=== PATIENT | female | born 1985 | race Caucasian/White ===

== ENCOUNTER 2017-09-09 10:07 | Emergency (ER) | payer BC, MEDICAID ==
[2017-09-09] MEDS: NS 0.9% 1000 ML* 2,000 ML IV ONE (13:00)
[2017-09-09 13:08] LABS: ABS Basophils 0 10^3/ul (0-0.2); ABS Eosinophils 0 10^3/ul (0-0.6); ABS Lymphocytes 0.5 10^3/ul (1.0-4.8); ABS Monocytes 0.6 10^3/ul (0-0.8); ABS Neutrophils 7.2 10^3/ul (1.5-7.7); ABS Nucleated RBC 0 10^3/ul; Eosinophil % 0.1 % (0-6); Hematocrit 33 % (35-47); Hemoglobin 11.1 g/dl (12.0-16.0); Mean Corpuscular HGB Conc 34 g/dl (31-36); Mean Corpuscular Hemoglobin 31 pg (27-31); Mean Corpuscular Volume 91 fL (80-97); Mean Platelet Volume 9 um3 (7.4-10.4); Nucleated Red Blood Cells % 0.1; Platelet Count 143 10^3/ul (150-450); Red Cell Distribution Width 14 % (10.5-15); White Blood Count 8.4 10^3/ul (3.5-10.8)
[2017-09-09] MEDS ORDERED: Oseltamivir CAP* 75 MG CAP PO ONE (13:30)
[2017-09-09 14:11] LABS: Urine Appearance Clear; Urine Blood Negative (Negative); Urine Color Straw; Urine Ketones Negative (Negative); Urine Protein Negative (Negative); Urine Specific Gravity 1.003 (1.010-1.030); Urine Urobilinogen Negative (Negative)
[2017-09-09 14:43] VITALS: BP 124/67
--- NOTE | 2017-09-10 10:55 | ED ---
Mamie Servin Edward, scribed for Obi Dove MD on 09/09/17 at 1226 . HPI Febrile Illness - HPI Summary HPI Summary: 32 y/o female presents to the ED c/o fever starting yesterday morning. The fever has not gone down since yesterday. Pt is 38.5 weeks . Associated sx: productive cough. Denies burning with urination, SOB. Sx not alleviated by anything. - History of Current Complaint Chief Complaint: EDFever Time Seen by Provider: 09/09/17 12:18 Hx Obtained From: Patient Onset/Duration: Started Hours Ago - yesterday Timing: Constant Aggravating Factors: Nothing Associated Signs and Symptoms: Cough - Allergy/Home Medications Allergies/Adverse Reactions: Allergies Allergy/AdvReac Type Severity Reaction Status Date / Time No Known Allergies Allergy Verified 09/09/17 10:10 PMH/Surg Hx/FS Hx/Imm Hx Previously Healthy: No Cardiovascular History: Denies: Hx Myocardial Infarction Opthamlomology History: Denies: Hx Legally Blind Infectious Disease History: No Infectious Disease History: Denies: Traveled Outside the [place] in Last 30 Days - Family History Known Family History: Positive: Unknown - Social History Lives: With Family Alcohol Use: None Hx Substance Use: No Substance Use Type: Reports: None Hx Tobacco Use: Yes Smoking Status (MU): Former Smoker Review of Systems Positive: Fever Eyes: Negative ENT: Negative Cardiovascular: Negative Positive: Cough Gastrointestinal: Negative Genitourinary: Negative Musculoskeletal: Negative Skin: Negative Neurological: Negative Psychological: Normal All Other Systems Reviewed And Are Negative: Yes Physical Exam - Summary Physical Exam Summary: VITAL SIGNS: Reviewed. GENERAL: Patient is a well-developed and nourished female who is lying comfortable in the stretcher. Patient is not in any acute respiratory distress. HEAD AND FACE: No signs of trauma. No ecchymosis, hematomas or skull depressions. No sinus tenderness. EYES: PERRLA, EOMI x 2, No injected conjunctiva, no nystagmus. EARS: Hearing grossly intact. Ear canals and tympanic membranes are within normal limits. MOUTH: Oropharynx within normal limits. NECK: Supple, trachea is midline, no adenopathy, no JVD, no carotid bruit, no c- spine tenderness, neck with full ROM. CHEST: Symmetric, no tenderness at palpation LUNGS: Clear to auscultation bilaterally. No wheezing or crackles. CVS: Regular rate and rhythm, S1 and S2 present, no murmurs or gallops appreciated. ABDOMEN: Soft, non-tender. No signs of distention. No rebound no guarding, and no masses palpated. Bowel sounds are normal. EXTREMITIES: FROM in all major joints, no edema, no cyanosis or clubbing. NEURO: Alert and oriented x 3. No acute neurological deficits. Speech is normal and follows commands. SKIN: Dry and warm Triage Information Reviewed: Yes Vital Signs On Initial Exam: Initial Vitals Temp Pulse Resp BP Pulse Ox 98.4 F 115 20 125/73 99 09/09/17 10:10 09/09/17 10:10 09/09/17 10:10 09/09/17 10:10 09/09/17 10:10 Vital Signs Reviewed: Yes Diagnostics - Vital Signs Vital Signs Temp Pulse Resp BP Pulse Ox 09/09/17 10:10 98.4 F 115 20 125/73 99 - Laboratory Lab Results: Lab Results 09/09/17 09/09/17 09/09/17 Range/Units 12:16 12:42 13:10 WBC 8.4 (3.5-10.8) 10^3/ul RBC 3.60 L (4.0-5.4) 10^6/ul Hgb 11.1 L (12.0-16.0) g/dl Hct 33 L (35-47) % MCV 91 (80-97) fL MCH 31 (27-31) pg MCHC 34 (31-36) g/dl RDW 14 (10.5-15) % Plt Count 143 L (150-450) 10^3/ul MPV 9 (7.4-10.4) um3 Neut % (Auto) 85.9 H (38-83) % Lymph % (Auto) 6.0 L (25-47) % Major % (Auto) 7.6 (1-9) % Eos % (Auto) 0.1 (0-6) % Baso % (Auto) 0.4 (0-2) % Absolute Neuts (auto) 7.2 (1.5-7.7) 10^3/ul Absolute Lymphs (auto) 0.5 L (1.0-4.8) 10^3/ul Absolute Monos (auto) 0.6 (0-0.8) 10^3/ul Absolute Eos (auto) 0 (0-0.6) 10^3/ul Absolute Basos (auto) 0 (0-0.2) 10^3/ul Absolute Nucleated RBC 0 10^3/ul Nucleated RBC % 0.1 Urine Color Urine Appearance Urine pH (5-9) Ur Specific Marshall (1.010-1.030) Urine Protein (Negative) Urine Ketones (Negative) Urine Blood (Negative) Urine Nitrate (Negative) Urine Bilirubin (Negative) Urine Urobilinogen (Negative) Ur Leukocyte Esterase (Negative) Urine Glucose (Negative) Influenza A (Rapid) Positive H (Negative) Influenza B (Rapid) Negative (Negative) Group A Strep Rapid Negative (Negative) 09/09/17 Range/Units 13:56 WBC (3.5-10.8) 10^3/ul RBC (4.0-5.4) 10^6/ul Hgb (12.0-16.0) g/dl Hct (35-47) % MCV (80-97) fL MCH (27-31) pg MCHC (31-36) g/dl RDW (10.5-15) % Plt Count (150-450) 10^3/ul MPV (7.4-10.4) um3 Neut % (Auto) (38-83) % Lymph % (Auto) (25-47) % Major % (Auto) (1-9) % Eos % (Auto) (0-6) % Baso % (Auto) (0-2) % Absolute Neuts (auto) (1.5-7.7) 10^3/ul Absolute Lymphs (auto) (1.0-4.8) 10^3/ul Absolute Monos (auto) (0-0.8) 10^3/ul Absolute Eos (auto) (0-0.6) 10^3/ul Absolute Basos (auto) (0-0.2) 10^3/ul Absolute Nucleated RBC 10^3/ul Nucleated RBC % Urine Color Straw Urine Appearance Clear Urine pH 7.0 (5-9) Ur Specific Marshall 1.003 L (1.010-1.030) Urine Protein Negative (Negative) Urine Ketones Negative (Negative) Urine Blood Negative (Negative) Urine Nitrate Negative (Negative) Urine Bilirubin Negative (Negative) Urine Urobilinogen Negative (Negative) Ur Leukocyte Esterase Negative (Negative) Urine Glucose Negative (Negative) Influenza A (Rapid) (Negative) Influenza B (Rapid) (Negative) Group A Strep Rapid (Negative) Result Diagrams: 09/09/17 12:42 Lab Statement: Any lab studies that have been ordered have been reviewed, and results considered in the medical decision making process. Course/Dx - Course Assessment/Plan: 32 y/o female presents to the ED c/o fever starting yesterday morning. The fever has not gone down since yesterday. Pt is 38.5 weeks . Associated sx: productive cough. Denies burning with urination, SOB. Sx not alleviated by anything. Spoke with Dr. Marin regarding the risks of treating women with Tamiflu - she states the benefits outweigh the risks.Test results are without significant abnormalities except slight decrease in H&H. UA (-) UTI. Influenza A positive. The pt was hydrated with 2 L of fluids and her sx significantly improved. pt reports she has no weakness and feels strong. She feels the baby moving. We did monitoring and there were positive normal heart sounds. I discussed the case with Tomas (see above). Therefore I will give a Rx Tamiflu and d/c the patient with f/u w/ pcp and ob-fruit harvester. - Febrile Illness Differential Diagnoses: Other: - URI, Influenza, pharyngitis, - Diagnoses Provider Diagnoses: Influenza - Provider Notifications Discussed Care Of Patient With: Doris Marin Time Discussed With Above Provider: 13:45 Instructed by Provider To: Other - tamiflu for women - benefits outweigh risks Discharge - Discharge Plan Condition: Stable Disposition: HOME Prescriptions: Oseltamivir CAP* [Tamiflu CAP*] 75 mg PO BID #10 cap Patient Education Materials: Influenza (ED) Referrals: Arnie Ross MD [Primary Care Provider] - 4 Days (PLEASE F/U IN 3-5 DAYS) The documentation as recorded by the Mamie engle Edward accurately reflects the service I personally performed and the decisions made by me, Obi Dove MD.
== END 2017-09-09 14:43 | disposition home or self-care (01) ==
LOC: ED 10:07
DX: J11.1 Influenza due to unidentified influenza virus with other respiratory manifestations (principal); Z87.891 Personal history of nicotine dependence
CPT/HCPCS: 36415; 81003; 85025; 87502; 87651; 96360; 99282; A9270-GY

== ENCOUNTER 2017-09-26 06:03 | Inpatient (IN) | payer BC, MEDICAID ==
[~2017-09-26 06:03] MED LIST: Buffered Lidocaine 0.9% SYRIN* 5 ML/SYR SYRINGE INTRADERM ONE; Famotidine IV* 10 MG/ML 2 ML (20 mg) IV ONE; Sodium Citrate/Citric Acid* 15 ML UDC PO ONE
[2017-09-26] MEDS ORDERED: ceFOXitin 2 GM IVPREMIX* 2 GM/50 ML BAG IVPB ONE (07:30)
[2017-09-26] MEDS ORDERED: KETAMINE HCL* 50 MG/ML 10 ML VIAL ONE (07:38)
[2017-09-26] MEDS ORDERED: fentaNYL* 50 MCG/ML 2 ML VIAL (100 MCG VIAL) ONE (07:38)
[2017-09-26] MEDS ORDERED: Morphine PF AMP (0.5MG/ML)* 5 MG/10 ML AMP ONE (07:39)
[2017-09-26] MEDS ORDERED: Midazolam* 1 MG/ML 10 ML VIAL (10 MG) ONE (07:39)
[2017-09-26] MEDS ORDERED: DiMENhydriNATE IV* 50 MG/ML VIAL IV PUSH PRN (08:24)
[2017-09-26] MEDS ORDERED: Ketorolac INJ* 30 MG/ML 1 ML VIAL IV PRN (08:24)
[2017-09-26] MEDS ORDERED: diPHENhydraMINE IV* 50 MG/ML 1 ml VIAL (BENADRYL) IV PRN (08:24)
[2017-09-26] MEDS ORDERED: Scopolamine PATCH Remove* 1 NOTE MISC PATCH OFF PRN (08:24)
[2017-09-26] MEDS ORDERED: Ondansetron INJ* 2 MG/ML VIAL IV PRN (08:24)
[2017-09-26] MEDS ORDERED: oxyCODONE/Acetamin 5/325 MG* TAB PO PRN (08:24)
[2017-09-26] MEDS ORDERED: Naloxone* 2 MG in NS 0.9% 250 ML* 250 ML IV PRN (08:24)
[2017-09-26] MEDS ORDERED: PROCHLORPERAZINE INJ 5 MG/ML 2 ML VIAL IV PRN (08:24)
[2017-09-26] MEDS ORDERED: Nalbuphine* 20 MG/ML 1 ML VIAL IV PRN (08:24)
[2017-09-26] MEDS ORDERED: Naloxone* 0.4 MG/ML 1 ML VIAL IV PRN ×2 (08:24→08:26)
[2017-09-26] MEDS ORDERED: fentaNYL* 50 MCG/ML 2 ML VIAL (100 MCG VIAL) IV PRN (08:26)
[2017-09-26] MEDS ORDERED: Phenylephrine INJ* 10 MG/ML 1 ML VIAL (10 MG) ONE (09:00)
[2017-09-26] MEDS ORDERED: Scopolamine 1.5 mg* PATCH ONE (09:00)
[2017-09-26] MEDS ORDERED: Ketorolac INJ* 30 MG/ML 1 ML VIAL ONE (09:00)
[2017-09-26] MEDS ORDERED: EPHEDrine (Pressors)* 50 MG/ML VIAL ONE (09:00)
[2017-09-26] MEDS ORDERED: Dexamethasone IV* 4 MG/ML 1 ML (4 MG) ONE (09:00)
[2017-09-26] MEDS ORDERED: Ondansetron INJ* 2 MG/ML VIAL ONE (09:00)
[2017-09-26] MEDS ORDERED: OXYTOCIN* 10 UNITS/ML 1 ML VIAL ONE (09:02)
[2017-09-26] MEDS ORDERED: Glycerin ADULT SUPP PR PRN (09:19)
[2017-09-26] MEDS ORDERED: Tetan/Diph/Pertus SYR(Tdap)* 0.5 ML SYR(BOOSTRIX) use SYR IM ONE (09:19)
[2017-09-26] MEDS ORDERED: Dibucaine 1% 28.35 GM TUBE PR PRN (09:19)
[2017-09-26] MEDS ORDERED: Zolpidem TAB* 5 MG PO PRN (09:19)
[2017-09-26] MEDS ORDERED: Acetaminophen TAB* 325 MG PO PRN (09:19)
[2017-09-26] MEDS ORDERED: Witch Hazel PAD* JAR TOPICAL PRN (09:19)
[2017-09-26] MEDS: Simethicone TAB* 80 MG TAB.CHEW PO SCH ×3 (13:48→21:56)
[2017-09-26] MEDS: Docusate CAP* 100 MG PO SCH ×2 (13:49→21:56)
[2017-09-27] MEDS ORDERED: oxyCODONE/Acetamin 5/325 MG* TAB PO PRN ×2 (00:24)
[2017-09-27 05:51] LABS: ABS Basophils 0.1 10^3/ul (0-0.2); ABS Eosinophils 0 10^3/ul (0-0.6); ABS Lymphocytes 2.3 10^3/ul (1.0-4.8); ABS Monocytes 0.8 10^3/ul (0-0.8); ABS Neutrophils 9.2 10^3/ul (1.5-7.7); ABS Nucleated RBC 0 10^3/ul; Eosinophil % 0.4 % (0-6); Hematocrit 31 % (35-47); Hemoglobin 10.3 g/dl (12.0-16.0); Lymphocyte % 18.4 % (25-47); Mean Corpuscular HGB Conc 34 g/dl (31-36); Mean Corpuscular Hemoglobin 31 pg (27-31); Mean Corpuscular Volume 91 fL (80-97); Mean Platelet Volume 10 um3 (7.4-10.4); Nucleated Red Blood Cells % 0; Platelet Count 167 10^3/ul (150-450); Red Blood Count 3.38 10^6/ul (4.0-5.4); Red Cell Distribution Width 14 % (10.5-15); White Blood Count 12.4 10^3/ul (3.5-10.8)
[2017-09-27] MEDS ORDERED: Ferrous Gluconate TAB* 324 MG TAB PO SCH (09:00)
[2017-09-27] MEDS: Simethicone TAB* 80 MG TAB.CHEW PO SCH ×4 (09:01→19:42)
[2017-09-27] MEDS: Docusate CAP* 100 MG PO SCH ×3 (09:01→19:42)
--- NOTE | 2017-09-27 11:16 | OP ---
DATE OF OPERATION: 09/26/17 - ROOM #118 DATE OF : 81 SURGEON: Arnie Ross MD SENIOR PRODUCT DESIGNER: Dr. Arin Holder. ANESTHESIA: Spinal. PRE-OP DIAGNOSIS: Intrauterine at 40 weeks with a prior section and desires surgical sterilization. POST-OP DIAGNOSIS: Intrauterine at 40 weeks with a prior section and desires surgical sterilization. OPERATIVE PROCEDURE: Repeat low transverse section and bilateral fimbriectomy. ESTIMATED BLOOD LOSS: 600 cc. SPECIMENS SENT TO PATHOLOGY: Bilateral fimbrial and cord blood sample. FLUIDS: She received IV crystalloid fluid. URINE OUTPUT: Clear. FINDINGS: Delivery of a viable male over clear fluid with a weight of 9 pounds 6 ounces with Apgars of 9 and 9. The placenta was grossly intact with a 3- vessel cord noted. The uterus, adnexa, bowel, and bladder were all within normal limits. There were no complications. DESCRIPTION OF PROCEDURE: The patient was taken to the operating room, where she was identified. She was placed on the operating table, where a spinal anesthetic was obtained without difficulty. She was then placed in the supine position with a leftward tilt, prepped and draped in normal sterile fashion. A Pfannenstiel skin incision was then made with a knife and carried through to the underlying layer of fascia. The fascia was then nicked in the midline and extended laterally with curved Moody scissors. The fascia was then grasped superiorly and inferiorly with Rosalind clamps, dissected sharply from the rectus muscle. The rectus muscle was in the midline bluntly. The peritoneum was identified, grasped with pickups, entered sharply with Metzenbaum scissors, and extended superiorly and inferiorly sharply. A bladder blade was inserted into the patient's abdomen. A low transverse uterine incision was made with a knife and extended laterally with bandage scissors. Amniotic sac was ruptured. The fluid was noted to be clear. The infant's head was then grasped and delivered atraumatically. The rest of the infant's body was then delivered. The cord was clamped and cut. The infant was then handed off to awaiting insurance verification clerk. Cord bloods were obtained. The placenta was then removed manually. The uterus was then exteriorized, cleared of all clot and debris using moist laparotomy sponges. The uterine incision was then closed using 0 Polysorb suture in a running locked fashion with a second imbricating layer of 0 Polysorb suture with good hemostasis noted. At this time, a bilateral fimbriectomy was done in the usual fashion and portions of the right and left fimbriae were sent to Pathology. The uterus was then returned to the patient's abdomen. The gutters were then cleared of all clot and debris using moist laparotomy sponges. Instruments were removed from the patient's abdomen. The uterine incision was noted to be hemostatic. The peritoneum was then closed using 3-0 Polysorb suture in a running fashion. The fascia was closed using 0 Polysorb suture in a running locked fashion and the skin was closed with 4-0 Vicryl subcuticular stitch. The patient tolerated the procedure well. Sponge, lap, and needle counts were correct x2. She was then transferred to recovery room area in stable condition. [id number]/[facility] #: [id number] MICHELE
[2017-09-27] MEDS: Ibuprofen TAB* 600 MG PO PRN ×2 (12:51→19:42)
--- NOTE | 2017-09-27 16:05 | PN ---
Progress Note - Progress Note Date of Service: 09/27/17 Note: Anesthesia duramorph followup, VSS, neuro ok, -LIRA, some nausea last PM resolved.s/p CS, continue oral meds
[2017-09-28] MEDS: Ibuprofen TAB* 600 MG PO PRN ×4 (04:06→21:45)
[2017-09-28] MEDS: Simethicone TAB* 80 MG TAB.CHEW PO SCH ×4 (10:00→21:45)
[2017-09-28] MEDS: Docusate CAP* 100 MG PO SCH ×3 (10:01→21:45)
[2017-09-29] MEDS: Ibuprofen TAB* 600 MG PO PRN ×2 (04:30→10:40)
[2017-09-29 07:45] VITALS: BP 111/65
[2017-09-29] MEDS: Docusate CAP* 100 MG PO SCH (09:39)
[2017-09-29] MEDS: Simethicone TAB* 80 MG TAB.CHEW PO SCH (09:39)
== END 2017-09-29 12:51 | disposition home or self-care (01) | DRG 540 ==
LOC: MCHOB 06:03
PROVIDERS: ADMIT Obstetrics & Gynecology; ATTEND Obstetrics & Gynecology
PROC: 0UB70ZZ Excision of Bilateral Fallopian Tubes, Open Approach (ICD-10-PCS; 2017-09-26)
PROC: 4A1HXCZ Monitoring of Products of Conception, Cardiac Rate, External Approach (ICD-10-PCS; 2017-09-26)
PROC: 10D00Z1 Extraction of Products of Conception, Low, Open Approach (ICD-10-PCS; principal; 2017-09-26 07:45)
DX: O34.211 Maternal care for low transverse scar from previous cesarean delivery (principal); O48.0 Post-term pregnancy; Z3A.41 41 weeks gestation of pregnancy; Z37.0 Single live birth; Z30.2 Encounter for sterilization
CPT/HCPCS: 36415; 85025; 88302; A9270-GY; J0694; J1100; J1240; J1885; J2250; J2405; J2590; J3010

== ENCOUNTER 2018-05-24 08:38 | Emergency (ER) | payer BC, MEDICAID ==
[2018-05-24 08:52] VITALS: BP 112/62
--- NOTE | 2018-05-24 09:16 | UC ---
Respiratory Complaint HPI - HPI Summary HPI Summary: 5 DAYS OF COUGH, CHEST CONGESTION AND EAR FULLNESS. STATES OVER THE PAST COUPLE OF DAYS SHE HAS FELT VERY DIZZY WITH INTERMITTENT NAUSEA. HEARD SOME CRACKLING IN HER LUNGS LAST NIGHT. HAD SUBJECTIVE FEVER BUT NOTHING DOCUMENTED. ALSO SICK AT HOME. PATIENT CURRENTLY BREAST-FEEDING HER 7- MONTH-OLD SON. - History of Current Complaint Chief Complaint: UCRespiratory Stated Complaint: CONGESTED,DIZZINESS Time Seen by Provider: 05/24/18 08:52 Hx Obtained From: Patient Onset/Duration: Gradual Onset, Lasting Days, Still Present Timing: Constant Severity Initially: Moderate Severity Currently: Moderate Pain Intensity: 0 Pain Scale Used: 0-10 Numeric Character: Cough: Nonproductive Aggravating Factors: Nothing Alleviating Factors: Nothing Associated Signs And Symptoms: Positive: Fever, Chills, Wheezing, URI, Nasal Congestion. Negative: Dyspnea - Allergies/Home Medications Allergies/Adverse Reactions: Allergies Allergy/AdvReac Type Severity Reaction Status Date / Time No Known Allergies Allergy Verified 05/24/18 08:50 PMH/Surg Hx/FS Hx/Imm Hx Previously Healthy: Yes - Surgical History Surgical History: Yes Surgery Procedure, Year, and Place: x2 - Family History Known Family History: Negative: Hypertension - Social History Alcohol Use: Rare Substance Use Type: None Smoking Status (MU): Former Smoker Amount Used/How Often: on occasion Household Exposure Type: Cigarettes - Immunization History Most Recent Influenza Vaccination: unknown Most Recent Tetanus Shot: unknown Most Recent Pneumonia Vaccination: none Review of Systems Constitutional: Fever, Fatigue ENT: Ear Ache, Nasal Discharge Respiratory: Cough Cardiovascular: Negative Gastrointestinal: Nausea Neurological: Other - DIZZY All Other Systems Reviewed And Are Negative: Yes Physical Exam Triage Information Reviewed: Yes Appearance: Well-Appearing, No Pain Distress, Well-Nourished Vital Signs: Initial Vital Signs Temp 97.7 F 05/24/18 08:42 Pulse 90 05/24/18 08:42 Resp 20 05/24/18 08:42 BP 112/62 05/24/18 08:42 Pulse Ox 95 05/24/18 08:42 Vital Signs Reviewed: Yes Eyes: Positive: Conjunctiva Clear ENT: Positive: Hearing grossly normal, Pharynx normal, TMs normal Neck: Positive: Supple, Nontender, No Lymphadenopathy Respiratory: Positive: No respiratory distress, No accessory muscle use, Rhonchi - LEFT MID/LOW LUNG Cardiovascular Exam: Normal Abdomen Description: Positive: Soft Musculoskeletal: Positive: No Edema Neurological: Positive: Alert Psychological: Positive: Age Appropriate Behavior Skin: Negative: rashes UC Diagnostic Evaluation - Laboratory O2 Sat by Pulse Oximetry: 95 - Radiology Xray Interpretation: No Acute Changes - CXR Radiology Interpretation Completed By: Radiologist Respiratory Course/Dx - Differential Dx/Diagnosis Provider Diagnoses: ACUTE BRONCHITIS Discharge - Sign-Out/Discharge Documenting (check all that apply): Patient Departure All imaging exams completed and their final reports reviewed: Yes - Discharge Plan Condition: Stable Disposition: HOME Prescriptions: Albuterol HFA INHALER* [Ventolin HFA Inhaler*] 2 puff INH Q4H PRN #1 mdi PRN Reason: Shortness Of Breath Azithromycin 500 mg PO DAILY #5 tab Inhaler, Assist Devices [Aerochamber Mini] 1 each MC Q4H PRN #1 spacer PRN Reason: Cough predniSONE TAB* [Deltasone 20 MG TAB*] 40 mg PO DAILY #10 tab Patient Education Materials: Acute Bronchitis (ED), Bronchospasm (ED) Referrals: No Primary Care Phys,NOPCP [Primary Care Provider] - Additional Instructions: CHEST XRAY TODAY UNREMARKABLE. YOUR SYMPTOMS MAY BE VIRALLY MEDIATED BUT GIVEN THE LENGTH OF TIME YOU HAVE BEEN ILL WE WILL COVER YOU WITH ANTIBIOTICS. IF YOU START THE MEDICINE BE SURE TO TAKE IT FOR THE FULL COURSE. REST, HYDRATE, OTC MEDS NEEDED. WILL ALSO TREAT WITH PREDNISONE AND ALBUTEROL TO HELP WITH AIRWAY INFLAMMATION. SEEK FOLLOW-UP WITH YOUR PCP IF YOU ARE NOT IMPROVING OVER THE NEXT 1-2 WEEKS. CALL THE NUMBER BELOW FOR ASSISTANCE IN ESTABLISHING WITH A PCP An additional resource available to assist in finding the appropriate physician for your health care needs is the [facility] ([facility]). You may contact them by calling [phone]. - Billing Disposition and Condition Condition: STABLE Disposition: Home
--- NOTE | 2018-05-24 09:34 | RAD ---
HISTORY: cough, rhonchi left lung COMPARISONS: None VIEWS: 4: Frontal dual-energy and lateral views of the chest. FINDINGS: CARDIOMEDIASTINAL SILHOUETTE: The cardiomediastinal silhouette is normal. HALLEY: The halley are normal. PLEURA: The costophrenic angles are sharp. No pleural abnormalities are noted. LUNG PARENCHYMA: The lungs are clear. ABDOMEN: The upper abdomen is clear. There is no subphrenic gas. BONES AND SOFT TISSUES: No bone or soft tissue abnormalities are noted. OTHER: None. IMPRESSION: NO ACTIVE CARDIOPULMONARY DISEASE.
== END 2018-05-24 10:08 | disposition home or self-care (01) ==
LOC: UCEAST 08:38
DX: J20.9 Acute bronchitis, unspecified (principal); Z87.891 Personal history of nicotine dependence
CPT/HCPCS: 71046; 99212; G0463